=== PATIENT | female | born 1960 | race Caucasian/White ===

== ENCOUNTER → 2019-09-27 08:53 | Outpatient (BNVA) | payer MEDICAID, SELFPAY | PROVIDERS: Family Provider Nurse Practitioner; PCP Nurse Practitioner; Visit Provider Nurse Practitioner Family | DX: N39.0 Urinary tract infection, site not specified (principal); I10 Essential (primary) hypertension; E11.9 Type 2 diabetes mellitus without complications; E55.9 Vitamin D deficiency, unspecified; E78.2 Mixed hyperlipidemia; M1A.9XX0 Chronic gout, unspecified, without tophus (tophi); M25.551 Pain in right hip; M25.552 Pain in left hip; M51.36 Other intervertebral disc degeneration, lumbar region; M54.41 Lumbago with sciatica, right side; M54.42 Lumbago with sciatica, left side; E11.8 Type 2 diabetes mellitus with unspecified complications; Z79.4 Long term (current) use of insulin; M1A.09X0 Idiopathic chronic gout, multiple sites, without tophus (tophi) | CPT/HCPCS: 36415; 80053; 80061; 81001; 82306; 82652; 83036; 83721; 84443; 84550; 85025 ==

== ENCOUNTER 2019-10-01 12:27 | Outpatient (CLI) | payer MEDICAID, SELFPAY ==
--- NOTE | 2019-10-01 12:32 | XR_ITS ---
WS: [id number] Bilateral hips, AP and frog leg, 10/01/2019 Clinical Data: hip pain with sciatica Comparison: None. Findings: There is no erosion, sclerosis, narrowing or cyst formation of the hips. Bilaterally however there ar e acetabular lips which can be associated with osteoarthritis. No fractures or dislocations are seen. The visualized SI joints and pubic symphysis are unremarkable. The soft tissues are normal. 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
--- NOTE | 2019-10-01 12:32 | XR_ITS ---
WS: [id number] Lumbar spine, lateral views in neutral, flexion and extension, AP, L5-S1 spot, and both obliques, 10/01 Clinical Data: back and hip pain Comparison: None. Findings: No compression fractures or subluxation is seen. No disc space narrowing is seen. The transverse proc esses and SI joints are normal. The oblique films show no spondylolysis. No spondylolisthesis is present. On the flexion and extensio n views no limitation of motion or subluxation is noted. Minimal anterior osteoarthritic spurring is seen. There are clips in the right upper abdomen from a cholecystectomy. XR/XR lumbar spine 6V w f/e [id number] Impression: 1. Minimal osteoarthritic change. 2. No limitation of motion or subluxation on flexion or extension.
== END 2019-10-01 12:28 | disposition home or self-care (01) ==
LOC: RAD 12:30
PROVIDERS: Family Provider Nurse Practitioner; PCP Nurse Practitioner; Visit Provider Nurse Practitioner Family
DX: M16.0 Bilateral primary osteoarthritis of hip (principal)
CPT/HCPCS: 72114; 73523

== ENCOUNTER 2019-10-13 12:50 | Outpatient (CLI) | payer MEDICAID, SELFPAY ==
--- NOTE | 2019-10-13 13:00 | MR_ITS ---
WS: [id number] MRI LUMBAR SPINE NONCONTRAST TECHNIQUE: Sagittal T1, T2 and STIR imaging. Axial T1 and T2 imaging. CLINICAL INFORMATION: continued and worsening back pain with radiculopathy COMPARISON: None. FINDINGS: Mild lumbar curve. No acute compression. No high-grade central canal stenosis. No acute appearing com pression fractures. L1-2: Normal L2-3: Normal. L3-L4: Minimal annular bulging. Slight effacement of ventral thecal sac. Mild facet arthropathy. Mild right and no significant left foraminal narrowing. Moderate facet arthropathy. L4-L5: No significant disc bulging. Moderate facet arthropathy. Spinal canal and foramen are patent. L5-S1: Right eccentric disc osteophytic ridging. This slightly encroaches on the far exiting right L5 nerve root. Spinal canal and foramen are patent. Moderate facet arthropathy. Incidental Tarlov cyst in the sacrum. Incidental renal cysts. A few small disc protrusions in the cer vical spine seen on the assistant strength coach imaging. This can be followed up with cervical spine MRI.Small infraren al abdominal aortic aneurysm measuring 2.3 cm and 2.5 cm AP by transverse. MR/MR lumbar spine wo con* [id number] IMPRESSION: 1. Mild lumbar curve. No acute compression. No high-grade central canal stenos is. 2. Mild annular bulging L3-4 with mild right foraminal narrowing. Spinal canal is patent. 3. Right eccentric disc osteophytic ridging L5-S1 slightly encroaches on the f ar exiting right L5 nerve root without significant nerve root impingement. 4. Moderate facet arthropathy L4-L5 and L5-S1. 5. Small infrarenal abdominal aortic aneurysm measuring 2.3 cm and 2.5 cm AP b y transverse.
== END 2019-10-13 12:51 | disposition home or self-care (01) ==
LOC: RADSHAW 12:53
PROVIDERS: Family Provider Nurse Practitioner; PCP Nurse Practitioner Family; Visit Provider Nurse Practitioner Family
DX: M48.061 Spinal stenosis, lumbar region without neurogenic claudication (principal); M47.816 Spondylosis without myelopathy or radiculopathy, lumbar region; I71.4 Abdominal aortic aneurysm, without rupture
CPT/HCPCS: 72148

== ENCOUNTER 2019-11-11 11:18 | Outpatient (CLI) | payer MEDICAID, SELFPAY ==
--- NOTE | 2019-11-11 12:45 | USCV_ITS ---
Kathleen Davidson Age: 59 Gender: F : 1960 Exam Date: 11/11/2019 11:44 Ordering Phys: Gila Boswell APRN Technologist: Ann-Marie Dunn Exam Location: [facility] [place] Indication: AAA HISTORY: Diameter (cm) AP x Transverse x Length Velocity (cm/s) Waveform Prox Aorta: 2.24 x 2.05 x 94.60 Mid Aorta: 1.72 x 1.55 x 149.90 Distal Aorta: 2.32 x 2.32 x 119.90 Right Iliac Prox: 1.14 x 1.18 x 132.20 Left Iliac Prox: 1.14 x 1.21 x 133.40 Stent Prox Landing x x Aneurysmal Sac Max x x Lt Lat Sac Dim Rt Lat Sac Dim Stent Dist Landing x x Right Iliac Stent x x Left Iliac Stent x x Right Renal Art Left Renal Art FINDINGS: CONCLUSIONS No evidence of abdominal aortic or bilateral iliac aneurysm. Bala Ivey MD (Electronically Signed) Final Date: 11 November 2019 16:18 S
== END 2019-11-11 11:19 | disposition home or self-care (01) ==
LOC: US 11:19
PROVIDERS: Family Provider Nurse Practitioner Family; PCP Nurse Practitioner Family; Visit Provider Nurse Practitioner Family
DX: I71.4 Abdominal aortic aneurysm, without rupture (principal)
CPT/HCPCS: 76706

== ENCOUNTER 2019-11-15 12:36 | Outpatient (CLI) | payer MEDICAID, SELFPAY ==
[2019-11-15] MEDS: iohexol 350 mg/mL 100 mL Btl IV (12:59)
--- NOTE | 2019-11-15 13:00 | CT_ITS ---
WS: [id number] CT ANGIOGRAPHY abdomen and pelvis AORTA HISTORY: AAA TECHNIQUE: CT angiogram is performed during IV injection. Reformation and MIP images reviewed. All CT scans at [facility] use at least one of these dose optimization techniques: automated exp osure control; mA and/or kV adjustment per patient size (includes targeted exams where dose is matche d to clinical indication); or iterative reconstruction. CONTRAST: Omnipaque 350; 95 mL IV. DLP: 956.4 mGycm COMPARISON: 06/25/2007 and ultrasound aorta 11/11/2019 Chronic emphysematous changes at the lung bases. There are a few scattered granulomata. Small hiatal hernia. Mild enlargement of the LEFT heart chambers. Early enhancement of the liver is negative for vascular malformations or mass. Mild enlargement and h epatic steatosis. No bile duct dilatation. Prior cholecystectomy. Spleen, pancreas and adrenal glands are negative. Early arterial enhancement of the kidneys. Bilateral upper pole hypodense masses are p robably cysts. The phase of enhancement is not appropriate for evaluating masses. Abdominal aorta: Atherosclerosis of aorta. There is intimal thickening and a few scattered calcified plaques. No obstruction or aneurysm. Maximum diameter is 2.3 cm. Celiac axis, SMA and MARIAH are intact. Bilateral renal arteries without significant stenosis. No accessory renal artery identified. No free fluid or adenopathy. Small umbilical hernia contains fat only. Numerous diverticula in the distal colon. No evidence for a n acute inflammation. There is a hypoechoic nodule seen on image 116 of series 2 in the distal descen ding colon. Could be a small, 9 mm polyp. No osteoblastic or osteolytic bone disease. CT/CT angio abdomen pelvis [id number] IMPRESSION: 1. No abdominal aortic aneurysm. 2. Mild atherosclerosis aorta with a maximum diameter of 2.3 cm. 3. Hypodense nodule in the distal descending colon measures 9 mm. Possible col on polyp. 4. Sigmoid diverticulosis without acute diverticulitis. 5. Prior cholecystectomy. 6. Mild LEFT heart enlargement and small hiatal hernia. 7. Mild hepatic steatosis and hepatomegaly.
== END 2019-11-15 12:37 | disposition home or self-care (01) ==
LOC: RADWPI 12:39
PROVIDERS: Family Provider Nurse Practitioner Family; PCP Nurse Practitioner Family; Visit Provider Nurse Practitioner Family
DX: I71.4 Abdominal aortic aneurysm, without rupture (principal); I70.0 Atherosclerosis of aorta; K57.30 Diverticulosis of large intestine without perforation or abscess without bleeding; K44.9 Diaphragmatic hernia without obstruction or gangrene; I51.7 Cardiomegaly; K76.0 Fatty (change of) liver, not elsewhere classified; R16.0 Hepatomegaly, not elsewhere classified; Z90.49 Acquired absence of other specified parts of digestive tract
CPT/HCPCS: 74174; Q9967

== ENCOUNTER → 2019-12-08 12:33 | Outpatient (BNVA) | payer MEDICAID, SELFPAY | PROVIDERS: Family Provider Nurse Practitioner Family; PCP Nurse Practitioner Family; Referring Provider Licensed Practical Nurse; Visit Provider Anesthesiology Pain Medicine | DX: M51.17 Intervertebral disc disorders with radiculopathy, lumbosacral region (principal); M47.816 Spondylosis without myelopathy or radiculopathy, lumbar region | CPT/HCPCS: 99204 ==

== ENCOUNTER → 2020-01-04 12:53 | Outpatient (BNVA) | payer MEDICAID, SELFPAY | PROVIDERS: Family Provider Nurse Practitioner Family; PCP Nurse Practitioner Family; Visit Provider Anesthesiology Pain Medicine | DX: M47.816 Spondylosis without myelopathy or radiculopathy, lumbar region (principal); M48.062 Spinal stenosis, lumbar region with neurogenic claudication; M51.17 Intervertebral disc disorders with radiculopathy, lumbosacral region | CPT/HCPCS: 99212; 99213; J2001; J3490 ==

== ENCOUNTER → 2020-01-27 09:17 | Outpatient (BNVA) | payer MEDICAID, SELFPAY | PROVIDERS: Family Provider Nurse Practitioner Family; PCP Nurse Practitioner Family; Visit Provider Anesthesiology Pain Medicine | DX: M48.062 Spinal stenosis, lumbar region with neurogenic claudication (principal); M47.816 Spondylosis without myelopathy or radiculopathy, lumbar region; M51.17 Intervertebral disc disorders with radiculopathy, lumbosacral region; Z79.891 Long term (current) use of opiate analgesic | CPT/HCPCS: 99213; 99214 ==

== ENCOUNTER → 2020-02-08 14:08 | Outpatient (BNVA) | payer MEDICAID, SELFPAY | PROVIDERS: Family Provider Nurse Practitioner Family; PCP Nurse Practitioner Family; Visit Provider Anesthesiology Pain Medicine | DX: M47.816 Spondylosis without myelopathy or radiculopathy, lumbar region (principal); M48.062 Spinal stenosis, lumbar region with neurogenic claudication; Z79.891 Long term (current) use of opiate analgesic | CPT/HCPCS: 64635; 64636; 77003; J1030; J2001 ==

== ENCOUNTER → 2020-03-30 13:54 | Outpatient (BNVA) | payer MEDICAID, SELFPAY | PROVIDERS: Family Provider Nurse Practitioner Family; PCP Nurse Practitioner Family; Visit Provider Nurse Practitioner Family | DX: E11.8 Type 2 diabetes mellitus with unspecified complications (principal); Z79.4 Long term (current) use of insulin; M25.551 Pain in right hip; M25.552 Pain in left hip; S83.90XA Sprain of unspecified site of unspecified knee, initial encounter; S76.012A Strain of muscle, fascia and tendon of left hip, initial encounter; S76.912A Strain of unspecified muscles, fascia and tendons at thigh level, left thigh, initial encounter; M17.12 Unilateral primary osteoarthritis, left knee | CPT/HCPCS: 73502; 73562; 80053; 81003; 83036; 85025 ==

== ENCOUNTER → 2020-04-13 12:39 | Outpatient (BNVA) | payer MEDICAID, SELFPAY | PROVIDERS: Family Provider Nurse Practitioner Family; PCP Nurse Practitioner Family; Visit Provider Psychiatry & Neurology Neurology | DX: E11.65 Type 2 diabetes mellitus with hyperglycemia (principal); E11.40 Type 2 diabetes mellitus with diabetic neuropathy, unspecified; S98.131A Complete traumatic amputation of one right lesser toe, initial encounter | CPT/HCPCS: 99203 ==

== ENCOUNTER → 2020-04-17 08:56 | Outpatient (BNVA) | payer MEDICAID, SELFPAY | PROVIDERS: Family Provider Nurse Practitioner Family; PCP Nurse Practitioner Family; Visit Provider Anesthesiology Pain Medicine | DX: M48.062 Spinal stenosis, lumbar region with neurogenic claudication (principal); M47.816 Spondylosis without myelopathy or radiculopathy, lumbar region; M51.17 Intervertebral disc disorders with radiculopathy, lumbosacral region; Z79.891 Long term (current) use of opiate analgesic | CPT/HCPCS: 99213 ==

== ENCOUNTER → 2020-04-19 13:55 | Outpatient (BNVA) | payer MEDICAID, SELFPAY | PROVIDERS: Family Provider Nurse Practitioner Family; PCP Nurse Practitioner Family; Visit Provider Anesthesiology Pain Medicine | DX: M47.816 Spondylosis without myelopathy or radiculopathy, lumbar region (principal); M48.062 Spinal stenosis, lumbar region with neurogenic claudication | CPT/HCPCS: 64635; 64636; J1030 ==

== ENCOUNTER → 2020-04-25 13:56 | Outpatient (BNVA) | payer MEDICAID, SELFPAY | PROVIDERS: Family Provider Nurse Practitioner Family; PCP Nurse Practitioner Family; Visit Provider Licensed Practical Nurse | DX: G60.8 Other hereditary and idiopathic neuropathies (principal); M51.17 Intervertebral disc disorders with radiculopathy, lumbosacral region | CPT/HCPCS: 99213 ==

== ENCOUNTER 2020-05-16 06:00 | Outpatient (RCR) | payer MEDICARE, MEDICAID, SELFPAY | END 2020-05-24 23:59 | disposition home or self-care (01) | LOC: WPT 06:00 | PROVIDERS: PCP Nurse Practitioner Family; Referring Provider Licensed Practical Nurse; Visit Provider Licensed Practical Nurse | DX: M54.9 Dorsalgia, unspecified (principal); G89.29 Other chronic pain | CPT/HCPCS: 81003; 97110; 97161 ==

== ENCOUNTER → 2020-05-22 13:58 | Outpatient (BNVA) | payer MEDICARE, MEDICAID, SELFPAY | PROVIDERS: PCP Nurse Practitioner Family; Visit Provider Nurse Practitioner Family | DX: R39.9 Unspecified symptoms and signs involving the genitourinary system (principal) | CPT/HCPCS: 80053; 81003 ==

== ENCOUNTER 2020-05-25 06:00 | Outpatient (RCR) | payer MEDICARE, MEDICAID, SELFPAY | END 2020-06-24 23:59 | disposition home or self-care (01) | LOC: WPT 06:00 | PROVIDERS: PCP Nurse Practitioner Family; Referring Provider Licensed Practical Nurse; Visit Provider Licensed Practical Nurse | DX: M54.9 Dorsalgia, unspecified (principal); G89.29 Other chronic pain | CPT/HCPCS: 97110; 99213 ==

== ENCOUNTER → 2020-05-25 13:22 | Outpatient (BNVA) | payer MEDICARE, MEDICAID, SELFPAY | PROVIDERS: PCP Nurse Practitioner Family; Visit Provider Anesthesiology Pain Medicine | DX: M47.816 Spondylosis without myelopathy or radiculopathy, lumbar region (principal); M48.062 Spinal stenosis, lumbar region with neurogenic claudication; M51.36 Other intervertebral disc degeneration, lumbar region; M51.17 Intervertebral disc disorders with radiculopathy, lumbosacral region; Z79.891 Long term (current) use of opiate analgesic | CPT/HCPCS: 99213 ==

== ENCOUNTER → 2020-06-22 13:18 | Outpatient (BNVA) | payer MEDICARE, MEDICAID, SELFPAY | PROVIDERS: PCP Nurse Practitioner Family; Visit Provider Anesthesiology Pain Medicine | DX: M48.062 Spinal stenosis, lumbar region with neurogenic claudication (principal); M47.816 Spondylosis without myelopathy or radiculopathy, lumbar region; M51.36 Other intervertebral disc degeneration, lumbar region; M62.838 Other muscle spasm; Z79.891 Long term (current) use of opiate analgesic | CPT/HCPCS: 99214 ==

== ENCOUNTER → 2020-07-13 10:41 | Outpatient (BNVA) | payer MEDICARE, MEDICAID, SELFPAY | PROVIDERS: PCP Nurse Practitioner Family; Visit Provider Internal Medicine | DX: E11.40 Type 2 diabetes mellitus with diabetic neuropathy, unspecified (principal); Z79.4 Long term (current) use of insulin; E11.65 Type 2 diabetes mellitus with hyperglycemia; E78.2 Mixed hyperlipidemia; I10 Essential (primary) hypertension; R19.7 Diarrhea, unspecified; S98.131A Complete traumatic amputation of one right lesser toe, initial encounter; M47.816 Spondylosis without myelopathy or radiculopathy, lumbar region; M48.062 Spinal stenosis, lumbar region with neurogenic claudication; M51.36 Other intervertebral disc degeneration, lumbar region; M51.17 Intervertebral disc disorders with radiculopathy, lumbosacral region; Z79.891 Long term (current) use of opiate analgesic | CPT/HCPCS: 99212; 99213; 99214 ==

== ENCOUNTER → 2020-09-07 13:50 | Outpatient (BNVA) | payer MEDICARE, MEDICAID, SELFPAY | PROVIDERS: PCP Nurse Practitioner Family; Visit Provider Anesthesiology Pain Medicine | DX: G89.29 Other chronic pain (principal); M47.816 Spondylosis without myelopathy or radiculopathy, lumbar region; M48.062 Spinal stenosis, lumbar region with neurogenic claudication; M51.36 Other intervertebral disc degeneration, lumbar region; M51.17 Intervertebral disc disorders with radiculopathy, lumbosacral region; Z79.899 Other long term (current) drug therapy; Z79.891 Long term (current) use of opiate analgesic | CPT/HCPCS: 99214 ==

== ENCOUNTER → 2020-09-25 14:01 | Outpatient (BNVA) | payer MEDICARE, MEDICAID, SELFPAY | PROVIDERS: PCP Nurse Practitioner Family; Visit Provider Nurse Practitioner Family | DX: Z20.828 Contact with and (suspected) exposure to other viral communicable diseases (principal); J01.40 Acute pansinusitis, unspecified | CPT/HCPCS: 87635 ==

== ENCOUNTER → 2020-11-10 08:57 | Outpatient (BNVA) | payer MEDICARE, MEDICAID, SELFPAY | PROVIDERS: PCP Nurse Practitioner Family; Visit Provider Anesthesiology Pain Medicine | DX: G89.29 Other chronic pain (principal); M47.816 Spondylosis without myelopathy or radiculopathy, lumbar region; M51.17 Intervertebral disc disorders with radiculopathy, lumbosacral region; M48.062 Spinal stenosis, lumbar region with neurogenic claudication; M51.36 Other intervertebral disc degeneration, lumbar region; Z79.899 Other long term (current) drug therapy | CPT/HCPCS: 99214 ==

== ENCOUNTER → 2021-01-05 11:52 | Outpatient (BNVA) | payer MEDICARE, MEDICAID, SELFPAY | PROVIDERS: PCP Nurse Practitioner Family; Visit Provider Anesthesiology Pain Medicine | DX: M51.17 Intervertebral disc disorders with radiculopathy, lumbosacral region (principal); M47.816 Spondylosis without myelopathy or radiculopathy, lumbar region; M48.062 Spinal stenosis, lumbar region with neurogenic claudication; M51.36 Other intervertebral disc degeneration, lumbar region; M25.551 Pain in right hip; Z79.891 Long term (current) use of opiate analgesic | CPT/HCPCS: 99214 ==

== ENCOUNTER → 2021-02-05 15:52 | Outpatient (BNVA) | payer MEDICARE, MEDICAID, SELFPAY | PROVIDERS: PCP Nurse Practitioner Family; Visit Provider Nurse Practitioner Family | DX: I10 Essential (primary) hypertension (principal); E11.8 Type 2 diabetes mellitus with unspecified complications; Z79.4 Long term (current) use of insulin; H60.90 Unspecified otitis externa, unspecified ear; F51.01 Primary insomnia; N39.3 Stress incontinence (female) (male); M1A.09X0 Idiopathic chronic gout, multiple sites, without tophus (tophi); E78.2 Mixed hyperlipidemia; D64.9 Anemia, unspecified | CPT/HCPCS: 80053; 80061; 81003; 82043; 82306; 82607; 82746; 83036; 83550; 83721; 83735; 83921; 84100; 84443; 84550; 85025; 87086 ==

== ENCOUNTER → 2021-03-08 12:09 | Outpatient (BNVA) | payer MEDICARE, MEDICAID, SELFPAY | PROVIDERS: PCP Nurse Practitioner Family; Visit Provider Anesthesiology Pain Medicine | DX: G89.29 Other chronic pain (principal); M47.816 Spondylosis without myelopathy or radiculopathy, lumbar region; M51.17 Intervertebral disc disorders with radiculopathy, lumbosacral region; M48.062 Spinal stenosis, lumbar region with neurogenic claudication; M51.36 Other intervertebral disc degeneration, lumbar region; M16.0 Bilateral primary osteoarthritis of hip; Z79.891 Long term (current) use of opiate analgesic | CPT/HCPCS: 99214 ==

== ENCOUNTER → 2021-03-19 13:43 | Outpatient (BNVA) | payer MEDICARE, MEDICAID, SELFPAY | PROVIDERS: PCP Nurse Practitioner Family; Visit Provider Anesthesiology Pain Medicine | DX: M47.816 Spondylosis without myelopathy or radiculopathy, lumbar region (principal); M48.062 Spinal stenosis, lumbar region with neurogenic claudication; E11.9 Type 2 diabetes mellitus without complications; Z79.891 Long term (current) use of opiate analgesic; Z87.891 Personal history of nicotine dependence | CPT/HCPCS: 64635; 64636 ==

== ENCOUNTER → 2021-05-18 11:30 | Outpatient (BNVA) | payer MEDICARE, MEDICAID, SELFPAY | PROVIDERS: PCP Nurse Practitioner Family; Visit Provider Nurse Practitioner Family | DX: E11.65 Type 2 diabetes mellitus with hyperglycemia (principal); R53.83 Other fatigue | CPT/HCPCS: 80053; 81003; 82607; 82728; 82746; 83036; 83550; 83735; 84100; 84439; 84443; 84481; 85025 ==

== ENCOUNTER → 2021-05-22 10:18 | Outpatient (BNVA) | payer MEDICARE, MEDICAID, SELFPAY | PROVIDERS: PCP Nurse Practitioner Family; Visit Provider Anesthesiology Pain Medicine | DX: G89.29 Other chronic pain (principal); M47.816 Spondylosis without myelopathy or radiculopathy, lumbar region; M48.062 Spinal stenosis, lumbar region with neurogenic claudication; M51.36 Other intervertebral disc degeneration, lumbar region; M51.17 Intervertebral disc disorders with radiculopathy, lumbosacral region; Z79.891 Long term (current) use of opiate analgesic | CPT/HCPCS: 99214 ==

== ENCOUNTER → 2021-07-11 09:21 | Outpatient (BNVA) | payer MEDICARE, MEDICAID, SELFPAY | PROVIDERS: PCP Nurse Practitioner Family; Visit Provider Anesthesiology Pain Medicine | DX: G89.29 Other chronic pain (principal); M48.062 Spinal stenosis, lumbar region with neurogenic claudication; M51.36 Other intervertebral disc degeneration, lumbar region; M47.816 Spondylosis without myelopathy or radiculopathy, lumbar region; M51.17 Intervertebral disc disorders with radiculopathy, lumbosacral region; Z79.891 Long term (current) use of opiate analgesic | CPT/HCPCS: 99213; 99214 ==

== ENCOUNTER → 2021-07-17 13:28 | Outpatient (BNVA) | payer MEDICARE, MEDICAID, SELFPAY | PROVIDERS: PCP Nurse Practitioner Family; Referring Provider Anesthesiology Pain Medicine; Visit Provider Physician Assistant | DX: M48.062 Spinal stenosis, lumbar region with neurogenic claudication (principal); M16.0 Bilateral primary osteoarthritis of hip; M85.88 Other specified disorders of bone density and structure, other site | CPT/HCPCS: 72110; 73502 ==

== ENCOUNTER → 2021-08-02 11:29 | Outpatient (BNVA) | payer MEDICARE, MEDICAID, SELFPAY | PROVIDERS: PCP Nurse Practitioner Family; Visit Provider Nurse Practitioner Family | DX: R10.11 Right upper quadrant pain (principal) | CPT/HCPCS: 74018 ==

== ENCOUNTER → 2021-08-07 14:32 | Outpatient (BNVA) | payer MEDICARE, MEDICAID, SELFPAY | PROVIDERS: PCP Nurse Practitioner Family; Visit Provider Physician Assistant | DX: M48.062 Spinal stenosis, lumbar region with neurogenic claudication (principal); M25.559 Pain in unspecified hip; M54.2 Cervicalgia | CPT/HCPCS: 72050 ==

== ENCOUNTER → 2021-10-09 09:07 | Outpatient (BNVA) | payer MEDICARE, MEDICAID, SELFPAY | PROVIDERS: PCP Nurse Practitioner Family; Visit Provider Anesthesiology Pain Medicine | DX: M48.062 Spinal stenosis, lumbar region with neurogenic claudication (principal); M47.816 Spondylosis without myelopathy or radiculopathy, lumbar region; M51.36 Other intervertebral disc degeneration, lumbar region; M54.2 Cervicalgia; M25.551 Pain in right hip; M25.552 Pain in left hip; Z79.899 Other long term (current) drug therapy; Z79.891 Long term (current) use of opiate analgesic; Z87.891 Personal history of nicotine dependence | CPT/HCPCS: 99214 ==

== ENCOUNTER 2021-10-24 12:38 | Outpatient (CLI) | payer MEDICARE, MEDICAID, SELFPAY ==
--- NOTE | 2021-10-24 12:59 | MR_ITS ---
WS: [id number] MRI CERVICAL SPINE NONCONTRAST HISTORY: Neck pain radiating into head and upper extremities. Bilateral arm and hand numbness. COMPARISON: None available. Technique: Multiplanar, multisequence noncontrast imaging of the cervical spine. Posterior cervical alignment is normal. Disc spaces are mildly desiccated throughout. No fracture or marrow edema. Signal within the cervical cord is normal. Visualized posterior fossa is unremarkable. Craniocervical junction, C1 and C2 relationship, odontoid process and soft tissues are normal. T2 hem angioma. C2-C3: Large central disc protrusion and/or osteophyte with contact on the ventral thecal cord. Mild central stenosis. C3-C4: Large central disc protrusion and/or osteophyte contacting the ventral thecal sac with displac ement. Moderate central stenosis. Additional smaller osteophytes in the foramen resulting in mild for aminal stenosis. C4-C5: Large central disc protrusion effacing contacting the ventral thecal and cord with moderate ce ntral and mild foraminal stenosis. C5-C6: Large central to LEFT paracentral disc protrusion causing significant contact on the ventral c ervical cord. Posterior displacement of the cord on the LEFT. Severe central and mild to moderate franklin ateral foraminal stenosis. C6-C7: Large central disc protrusion contacting and displacing the cervical cord posterior. Severe ce ntral and moderate bilateral foraminal stenosis. C7-T1: No significant stenosis. Paraspinal soft tissue are normal. MR/MR cervical spin wo con* [id number] IMPRESSION: 1. Multilevel large disc protrusions and/or disc osteophyte complexes contacti ng the ventral thecal sac resulting in significant cervical canal stenosis. 2. Severe central stenosis at C5-6 and C6-7 with mild to moderate bilateral fo raminal stenosis. 3. Moderate central stenosis at C3-4 with mild foraminal stenosis. 4. Moderate central and mild foraminal stenosis at C4-5. 5. Disc osteophyte contact on the ventral thecal sac at C3-4, C4-5, C5-6 and C 6-7.
== END 2021-10-24 12:39 | disposition home or self-care (01) ==
LOC: RAD 12:44
PROVIDERS: PCP Nurse Practitioner Family; Visit Provider Physician Assistant
DX: M47.816 Spondylosis without myelopathy or radiculopathy, lumbar region (principal); M48.062 Spinal stenosis, lumbar region with neurogenic claudication; Z87.891 Personal history of nicotine dependence
CPT/HCPCS: 64493; 64494; 64495; 72141; J3490

== ENCOUNTER 2022-02-01 14:46 | Outpatient (CLI) | payer MEDICARE, MEDICAID, SELFPAY ==
--- NOTE | 2022-02-01 15:30 | CT_ITS ---
WS: [id number] CT ABDOMEN AND PELVIS WITH CONTRAST HISTORY: N20.0 - Calculus of kidney TECHNIQUE: Imaging performed of the abdomen and pelvis with IV contrast. Single phase imaging of the abdomen. Coronal and sagittal reformats are submitted. All CT scans at [facility] use at dinh st one of these dose optimization techniques: automated exposure control; mA and/or kV adjustment per patient size (includes targeted exams where dose is matched to clinical indication); or iterative re construction. IV CONTRAST: Omnipaque 300; 95 mL IV. Oral contrast: No DLP: 1187.62 mGy.cm COMPARISON: 11/14/2021 Lower thorax: Benign granuloma LEFT lower lobe. Mild cardiomegaly. Small hiatal hernia. Liver/biliary system: Enlarged dense liver with no solid mass identified. Again noted is hepatic stea tosis measuring 2.6 x 1.1 cm node the markie hepatis. Seen also on the prior examination. No bile duct dilatation. Portal vein is normal. Gallbladder: Status post cholecystectomy. Pancreas: Normal size pancreas and pancreatic duct. No adjacent inflammation. Spleen: Normal size spleen. No mass or infarct. Adrenal glands: Normal. Right kidney: Normal size kidney with mild diffuse cortical thinning. There are numerous low-attenuat ion nodules within the kidney. Some of these are too small to characterize. The largest in the upper pole measures 14 mm. This large nodule is indeterminate. No obstruction. No renal calcifications iden tified. Left kidney: Normal size kidney. Cortical thinning with scattered hypodensities. No solid mass. Nonob structing irregular calcification or cluster of calcifications in the mid kidney measures 7 mm in fransisco meter. Similar to the prior study. No obstruction. Aorta: Moderate atherosclerotic plaque throughout the aorta. There is calcification and mild intimal thickening. Celiac axis and mesenteric artery are both patent. Lymphadenopathy: None. Free fluid: None. GI tract: Unremarkable stomach. No small bowel obstruction. Mild diffuse constipation. The appendix i s not identified. Abdominal wall: Fat containing umbilical hernia. Pelvis: No free fluid or adenopathy. Nondistended urinary bladder with diffuse wall thickening. Wall thickening may be due to the underdistention. Bones: Unremarkable. CT/CT abdomen pelvis w con* [id number] IMPRESSION: 1. Stable 7 mm irregular LEFT renal calcification with no obstruction. 2. No calcifications or stones identified in the RIGHT kidney. No hydronephros is. 3. Appendix is not identified. 4. Status post hysterectomy and cholecystectomy. 5. Diffuse bladder wall thickening is probably on the basis of underdistention . 6. No adenopathy or ascites. 7. Hepatic steatosis and hepatomegaly. 8. Small hiatal hernia. 9. Indeterminate bilateral low-attenuation masses within each kidney. These ar e probably too small to be visualized by ultrasound. Consider renal mass CT pro tocol in 3-4 months.
== END 2022-02-01 14:47 | disposition home or self-care (01) ==
LOC: RAD 14:53
PROVIDERS: PCP Nurse Practitioner; Visit Provider Nurse Practitioner
DX: M54.9 Dorsalgia, unspecified (principal); G89.29 Other chronic pain
CPT/HCPCS: 74177; Q9967

== ENCOUNTER → 2022-03-11 13:50 | Outpatient (BNVA) | payer MEDICARE, MEDICAID, SELFPAY | PROVIDERS: PCP Nurse Practitioner; Visit Provider Nurse Practitioner | DX: E11.8 Type 2 diabetes mellitus with unspecified complications (principal); Z79.4 Long term (current) use of insulin; G25.81 Restless legs syndrome | CPT/HCPCS: 80053; 83036; 84443; 85025 ==

== ENCOUNTER 2022-03-19 06:50 | Outpatient (CLI) | payer MEDICARE, MEDICAID, SELFPAY ==
--- NOTE | 2022-03-19 07:00 | XR_ITS ---
WS: [id number] Exam: XR KUB [id number] Date/Time of Exam: 03/19/2022 6:58 AM Reason For Exam: UROLITHIASIS Ill-defined calcifications superimpose the left renal silhouette may represent renal calculi. No gama l obstruction or free air. Signs of prior cholecystectomy. No sign of organ enlargement. Bony changes of diffuse idiopathic skeletal hyperostosis. XR/XR KUB [id number] IMPRESSION: 1. Ill-defined calcifications superimpose the left kidney and may represent johanny al calculi. No acute abdominal finding.
== END 2022-03-19 06:51 | disposition home or self-care (01) ==
PROVIDERS: PCP Nurse Practitioner; Visit Provider Urology
DX: N20.0 Calculus of kidney (principal); N39.0 Urinary tract infection, site not specified
CPT/HCPCS: 51798; 74018; 81003; 87077; 87086; 87186; 99203

== ENCOUNTER → 2022-03-26 12:50 | Outpatient (BNVA) | payer MEDICARE, MEDICAID, SELFPAY | PROVIDERS: PCP Nurse Practitioner; Visit Provider Specialist | DX: G31.84 Mild cognitive impairment of uncertain or unknown etiology (principal); M48.02 Spinal stenosis, cervical region; M51.17 Intervertebral disc disorders with radiculopathy, lumbosacral region; F32.A Depression, unspecified; E11.42 Type 2 diabetes mellitus with diabetic polyneuropathy; E11.65 Type 2 diabetes mellitus with hyperglycemia; Z79.4 Long term (current) use of insulin; Z79.84 Long term (current) use of oral hypoglycemic drugs; E83.42 Hypomagnesemia; G47.10 Hypersomnia, unspecified | CPT/HCPCS: 96116; 99204; 99205 ==

== ENCOUNTER → 2022-05-03 10:33 | Outpatient (BNVA) | payer MEDICARE, MEDICAID, SELFPAY | PROVIDERS: PCP Nurse Practitioner; Visit Provider Urology | DX: N30.20 Other chronic cystitis without hematuria (principal); N28.1 Cyst of kidney, acquired; N20.9 Urinary calculus, unspecified | CPT/HCPCS: 51798; 81003; 99213 ==

== ENCOUNTER 2022-08-01 14:01 | Outpatient (CLI) | payer MEDICARE, MEDICAID, SELFPAY ==
--- NOTE | 2022-08-01 14:12 | XR_ITS ---
WS: [id number] EXAMINATION: XR ribs RT 2V* [id number] REASON FOR EXAM: R07.81 - Pleurodynia COMPARISON: None available. ORDER DATE: 08/01/2022 3:03 PM FINDINGS: There are no acute osseous abnormalities in the ribs There are prominent degenerative changes in the AC joint with marginal osteophytes. Similar but less marked change occurring in the glenohumeral join t. XR/XR ribs RT 2V* [id number] IMPRESSION: No acute osseous change.
--- NOTE | 2022-08-01 14:15 | US_ITS ---
WS: [id number] RENAL ULTRASOUND HISTORY: Bilateral Renal Cysts COMPARISON: None available. TECHNIQUE: 2-D and color Doppler imaging of the kidney submitted. Right kidney: 13.4 cm x 6.3 cm x 6.0 cm. Normal size kidney. No hydronephrosis or solid mass. Cortical cyst mid kidney measures 11 x 13 x 13 m m. Left kidney: 12.1 cm x 5.8 cm x 6.4 cm. Normal size kidney. There are 2 cysts identified within the LEFT kidney. The largest in the mid kidne y measures 20 x 24 x 26 mm. No solid mass. Aorta: Normal. Urinary Bladder: Normal distention. US/US renal BI* [id number] IMPRESSION: 1. No hydronephrosis or solid mass. 2. Small bilateral renal cysts as above.
== END 2022-08-01 14:02 | disposition home or self-care (01) ==
LOC: RAD 14:03
PROVIDERS: PCP Nurse Practitioner; Visit Provider Urology
DX: N30.20 Other chronic cystitis without hematuria (principal); N20.9 Urinary calculus, unspecified; N28.1 Cyst of kidney, acquired; R07.81 Pleurodynia
CPT/HCPCS: 71100; 76770; 87086; 99213

== ENCOUNTER 2022-09-04 11:30 | Outpatient (CLI) | payer MEDICARE, MEDICAID, SELFPAY ==
--- NOTE | 2022-09-04 13:10 | MM_ITS ---
WS: [id number] BILATERAL 3D TOMOSYNTHESIS DIGITAL SCREENING MAMMOGRAPHY WITH CAD CLINICAL INFORMATION: SCREENING HISTORY: Screening mammogram. Bilateral breast pain and soreness COMPARISON: None. TECHNIQUE: Bilateral CC and MLO views. FINDINGS: The breasts are composed of heterogeneous fibroglandular density tissue, which can limit the detectio n of small underlying mass lesions. No suspicious mass, asymmetry, calcifications, or architectural d istortion. No evidence of malignancy. A few incidental punctate calcifications and lucent centered ca lcifications. Small intramammary lymph node posterior depth LEFT breast MM/[place] [id number] IMPRESSION: BI-RADS: 2-Benign FOLLOW UP: 1 Year Follow-up Recommend return to annual screening mammography.
== END 2022-09-04 11:31 | disposition home or self-care (01) ==
LOC: RAD 11:32
PROVIDERS: PCP Nurse Practitioner; Visit Provider Registered Nurse
DX: Z12.31 Encounter for screening mammogram for malignant neoplasm of breast (principal)
CPT/HCPCS: 77063; 77067

== ENCOUNTER 2024-04-14 12:13 | Outpatient (CLI) | payer MEDICARE, MEDICAID, SELFPAY ==
--- NOTE | 2024-04-14 12:20 | XR_ITS ---
WS: [id number] Lumbar spine with flexion, extension, and neutral lateral, 04/14/2024 Clinical Data: VERTEBROGENIC LOW BACK PAIN Comparison: Lumbar spine, 07/17/2021 Findings: No compression fractures or subluxation is seen. No disc space narrowing is seen. No limitation of motion or subluxation is seen. There are osteoarthritic changes of all the lumbar vertebral bodies. There is degenerative disc narro wing at L1-L2. There are cholecystectomy clips in the upper abdomen. XR/XR lumbar spine f/e only [id number] Impression: 1. Moderate osteoarthritis of the lumbar vertebral bodies. 2. Degenerative disc narrowing at L1-L2. 3. Negative for limitation of motion or subluxation on flexion or extension.
== END 2024-04-14 12:14 | disposition home or self-care (01) ==
LOC: RAD 12:19
PROVIDERS: PCP Nurse Practitioner Family; Visit Provider Anesthesiology Pain Medicine
DX: M54.51 Vertebrogenic low back pain (principal); M47.816 Spondylosis without myelopathy or radiculopathy, lumbar region
CPT/HCPCS: 72120